=== PATIENT | female | born 1985 | race Caucasian/White ===

== ENCOUNTER 2016-09-14 09:19 | Emergency (ER) | payer MEDICAID ==
[~2016-09-14] VITALS: Ht 162.6 cm; Wt 109.5 kg
[2016-09-14 09:23] VITALS: Ht 162.6 cm; Wt 109.5 kg
[2016-09-14] MEDS ORDERED: IBUP-1542 PO (10:20)
--- NOTE | 2016-09-14 13:34 | ERD ---
ER Documentation Chief Complaint Date/Time DATE: 09/14/16 TIME: 13:33 Chief Complaint THROAT PAIN X 2 DAYS HPI Patient is a 31-year-old female with no medical problems who presents with a sore throat. She also has cough, congestion, and runny nose. She has had itchy eyes for the past 2 days and ear pain. She tried loratadine. She has left-sided flank pain. Upon review of old medical records this is the patient' s first visit to the emergency department. ROS All systems reviewed and are negative except as per history of present illness. Medications Home Meds Active Scripts Ibuprofen* (Motrin*) 600 Mg Tab, 600 MG PO Q6H Y for PAIN AND OR ELEVATED TEMP, #30 TAB Prov:FRANCISCO STEVENS MD 09/14/16 PMhx/Soc Medical and Surgical Hx: pt denies Medical Hx, pt denies Surgical Hx Hx Alcohol Use: No Hx Substance Use: No Hx Tobacco Use: No FmHx Family History: diabetes Physical Exam Vitals Vital Signs Date Time Temp Pulse Resp B/P Pulse Ox O2 Delivery O2 Flow Rate FiO2 09/14/16 09:23 98.7 90 18 121/68 100 Physical Exam Const: No acute distress Head: Atraumatic Eyes: Normal Conjunctiva ENT: Normal External Ears, Nose and Mouth. Neck: Full range of motion..~ No meningismus. Resp: Clear to auscultation bilaterally Cardio: Regular rate and rhythm, no murmurs Abd: Soft, non tender, non distended. Normal bowel sounds Skin: No petechiae or rashes Back: No midline or flank tenderness Ext: No cyanosis, or edema Neur: Awake and alert Psych: Normal Mood and Affect Procedures/MDM Patient is a 31-year-old female who presents with what appears to be an acute viral syndrome. I see no signs of serious bacterial infection at this time. She is otherwise well-appearing. The patient will be discharged home and can use ibuprofen as needed for pain or fever. She can return for any worsening symptoms. She should follow-up with a primary doctor within 24-48 hours for reevaluation. Her daughter is here with similar type symptoms and I do believe this is viral in nature. Departure Diagnosis: Primary Impression: URI (upper respiratory infection) URI type: unspecified viral URI Qualified Code: J06.9 - Viral upper respiratory tract infection Additional Impression: Sore throat Condition: Fair Patient Instructions: Uri, Viral, No Abx (Adult) Referrals: Your primary doctor Additional Instructions: Llame al doctor MAANA y ole sri PITO PARA DENTRO DE 1-2 PATTERSON.Dgale a la secretaria que nosotros le instruimos hacer esta pito.Avise o llame si meneses condicin se empeora antes de la pito. Regresa aqui si peor o no mejor. FRANCISCO STEVENS MD Sep 14, 2016 13:34
== END 2016-09-14 11:02 | disposition home or self-care (01) ==
LOC: FTE 09:19
DX: J06.9 Acute upper respiratory infection, unspecified (principal)
CPT/HCPCS: 99283

== ENCOUNTER 2016-09-23 11:12 | Emergency (ER) | payer MEDICAID ==
[~2016-09-23] VITALS: Ht 152.4 cm; Wt 108.2 kg
[~2016-09-23 11:12] MED LIST: IBUP-1542 PO
[2016-09-23 11:24] VITALS: Ht 152.4 cm; Wt 108.2 kg
[2016-09-23] MEDS ORDERED: KETOROLAC 30 MG INJ IM STA (12:20)
[2016-09-23] MEDS ORDERED: ONDANSETRON (ODT) 4 MG TAB ODT STA (12:20)
--- NOTE | 2016-09-23 12:55 | RADRPT ---
PROCEDURE: Chest x-ray CLINICAL INDICATION: Cough TECHNIQUE: Chest single view COMPARISON: None FINDINGS: The heart is normal in size. The pulmonary vessels are normal in caliber. The lungs are clear. Th e costophrenic angles are sharp. The visualized bony thorax is unremarkable. IMPRESSION: No acute cardiopulmonary disease. RPTAT: HH .Sidney Briseno MD, MD Date Time Electronically viewed and signed by .Sidney Briseno MD, MD on 09/23/2016 12:54 .W/
[2016-09-23] MEDS ORDERED: GUAI120S26 PO (13:32)
[2016-09-23] MEDS ORDERED: POLY10DR19 BOTH EYES (13:32)
[2016-09-23] MEDS ORDERED: ACET325T33 PO (13:32)
[2016-09-23] MEDS ORDERED: ONDA4TAB14 PO (13:32)
--- NOTE | 2016-09-23 13:41 | ERD ---
ER Documentation Chief Complaint Date/Time DATE: 09/23/16 TIME: 13:36 Chief Complaint Intermittent Fever, cough, body ache, chills, ST X 13 days HPI 31-year-old female with no significant past medical history presents to the ED complaining of dry cough that started 2 weeks ago. Reports that she has body aches chills and sore throat. States that she was seen here 2 weeks ago and was given a prescription for ibuprofen. States that her symptoms have not improved. Denies any sick contacts. Denies any abdominal pain, diarrhea, chest pain, shortness of breath, wheezing. ROS All systems reviewed and are negative except as per history of present illness. Medications Home Meds Active Scripts Ondansetron (Ondansetron Odt) 4 Mg Tab.rapdis, 4 MG PO Q6H Y for NAUSEA AND/OR VOMITING, #10 TAB Prov:KEVIN BAKER PA-C 09/23/16 Polymyxin B Sulfate-TMP* (Polymyxin B-TMP Eye Drops*) 10 Ml Drops, 1 DROP BOTH EYES QID for 7 Days, EA Prov:KEVIN BAKER PA-C 09/23/16 Adxyspdrnhn-V-Kybbdotupe Hb* (Guaifenesin* DM Syrup) 120 Ml Syrup, 10 ML PO Q4H Y for COUGH, #120 ML Prov:KEVIN BAKER PA-C 09/23/16 Acetaminophen* (Tylenol*) 325 Mg Tablet, 2 TAB PO Q8 Y for PAIN AND OR ELEVATED TEMP, #20 TAB Prov:KEVIN BAKER PA-C 09/23/16 Ibuprofen* (Motrin*) 600 Mg Tab, 600 MG PO Q6H Y for PAIN AND OR ELEVATED TEMP, #30 TAB Prov:FRANCISCO STEVENS MD 09/14/16 Allergies Allergies: Coded Allergies: No Known Allergy (Unverified , 09/23/16) PMhx/Soc Medical and Surgical Hx: pt denies Medical Hx, pt denies Surgical Hx Hx Alcohol Use: No Hx Substance Use: No Hx Tobacco Use: No Smoking Status: Never smoker Physical Exam Vitals Vital Signs Date Time Temp Pulse Resp B/P Pulse Ox O2 Delivery O2 Flow Rate FiO2 09/23/16 11:24 98.8 90 18 120/64 98 Physical Exam Const: Qek-icb-dkbwndgzs, well-nourished. In no acute distress. Head: Atraumatic, normocephalic Eyes: Conjunctiva with slight injection. No purulent discharge. PERRL. EOMI ENT: Normal external ear. Ear canal without erythema. Tympanic membrane pearly morris without effusion or bulging. Nasal canal clear with normal turbinates. Moist oropharynx without tonsillar exudates. Non-erythematous pharynx. Uvula midline. No drooling. No trismus. Neck: Full range of motion. No meningismus. No cervical lymphadenopathy. Resp: Clear to auscultation bilaterally. No wheezing, rhonchi, rales, or crackles. No accessory muscle use. No retractions. Cardio: Regular rate and rhythm. No murmurs, rubs or gallops. Abd: Soft, non tender, non distended. Normal bowel sounds. No palpable masses. No rebound tenderness. No guarding. Skin: No petechiae or rashes Back: No midline tenderness. No CVA tenderness. Ext: No cyanosis, or edema. Neur: Awake and alert. Psych: Normal Mood and Affect Results 24 hrs Current Medications Medications (Trade) Dose Ordered Sig/Rupali Route PRN Reason Start Time Stop Time Status Last Admin Dose Admin Ondansetron HCl (Zofran Odt) 4 mg ONCE STAT ODT 09/23/16 12:20 09/23/16 12:23 DC 09/23/16 12:30 Ketorolac Tromethamine (Toradol) 30 mg ONCE STAT IM 09/23/16 12:20 09/23/16 12:23 DC 09/23/16 12:31 Procedures/MDM This is a 31-year-old female with no significant past medical history presents to the ED complaining of flulike symptoms. Patient was seen here 2 weeks ago for similar symptoms and symptoms have not improved. Therefore a chest x-ray was ordered to further evaluate patient. Patient was treated here in the ED with ketorolac and Zofran with improvement of her symptoms. Negative urine . PROCEDURE: Chest x-ray CLINICAL INDICATION: Cough TECHNIQUE: Chest single view COMPARISON: None FINDINGS: The heart is normal in size. The pulmonary vessels are normal in caliber. The lungs are clear. The costophrenic angles are sharp. The visualized bony thorax is unremarkable. IMPRESSION: No acute cardiopulmonary disease. This patient presents to the ED with symptoms consistent with a flulike symptoms and conjunctivitis. Patient is afebrile and has normal vital signs. Patient's physical exam include lungs which were clear to auscultation and a normal pulse oximetry. There is a low suspicion for a croup, pneumonia, pneumothorax, cardiac tamponade, peritonsillar abscess, foreign body aspiration , mastoiditis, retropharyngeal abscess, epiglottitis, meningitis, sepsis or other emergent conditions. Low suspicion for retrobulbar hemorrhage, periorbital fracture/cellulitis, acute closure glaucoma, or other emergent conditions. Discharge medications: Zofran, Polytrim, guaifenesin DM, Tylenol Follow up with primary care physician in 1-2 days. Instructed patient to return to the ED sooner for any worsening symptoms. Patient's questions were answered. Patient understood and agreed with discharge plan. Patient discharged stable. Departure Diagnosis: Primary Impression: Viral syndrome Condition: Stable Patient Instructions: Viral Syndrome (Adult) Referrals: [facility] YOU HAVE RECEIVED A MEDICAL SCREENING EXAM AND THE RESULTS INDICATE THAT YOU DO NOT HAVE A CONDITION THAT REQUIRES URGENT TREATMENT IN THE EMERGENCY DEPARTMENT. FURTHER EVALUATION AND TREATMENT OF YOUR CONDITION CAN WAIT UNTIL YOU ARE SEEN IN YOUR DOCTORS OFFICE WITHIN THE NEXT 1-2 DAYS. IT IS YOUR RESPONSIBILITY TO MAKE AN APPOINTMENT FOR FOLOW-UP CARE. IF YOU HAVE A PRIMARY DOCTOR --you should call your primary doctor and schedule an appointment IF YOU DO NOT HAVE A PRIMARY DOCTOR YOU CAN CALL OUR PHYSICIAN REFERRAL HOTLINE AT IF YOU CAN NOT AFFORD TO SEE A PHYSICIAN YOU CAN CHOSE FROM THE FOLLOWING [facility] [address] [facility] [address] [facility]. [facility] [address] [facility] [facility] [address] [facility] [address] [facility]. [facility]. [address] [facility]. [facility] YOU HAVE RECEIVED A MEDICAL SCREENING EXAM AND THE RESULTS INDICATE THAT YOU DO NOT HAVE A CONDITION THAT REQUIRES URGENT TREATMENT IN THE EMERGENCY DEPARTMENT. FURTHER EVALUATION AND TREATMENT OF YOUR CONDITION CAN WAIT UNTIL YOU ARE SEEN IN YOUR DOCTORS OFFICE WITHIN THE NEXT 1-2 DAYS. IT IS YOUR RESPONSIBILITY TO MAKE AN APPOINTMENT FOR FOLOW-UP CARE. IF YOU HAVE A PRIMARY DOCTOR --you should call your primary doctor and schedule and appointment IF YOU DO NOT HAVE A PRIMARY DOCTOR YOU CAN CALL OUR PHYSICIAN REFERRAL HOTLINE AT . IF YOU CAN NOT AFFORD TO SEE A PHYSICIAN YOU CAN CHOSE FROM THE FOLLOWING [facility] INSTITUTIONS: [facility] [address] [place] [address] [facility] [address] [place] [address] [facility] [address] [place] [address] [facility] URGENT CARE/SPECIALTIES Additional Instructions: Llame al doctor MAANA y ole sri PITO PARA DENTRO DE 1-2 PATTERSON.Dgale a la secretaria que nosotros le instruimos hacer esta pito.Avise o llame si meneses condicin se empeora antes de la pito. Regresa aqui si peor o no mejor. KEVIN BAKER PA-C Sep 23, 2016 13:41
== END 2016-09-23 13:37 | disposition home or self-care (01) ==
LOC: FTE 11:12
DX: B34.9 Viral infection, unspecified (principal)
CPT/HCPCS: 71010; 96372; J1885; Z7502; Z7610

== ENCOUNTER 2016-12-11 20:44 | Emergency (ER) | payer MEDICAID ==
[~2016-12-11] VITALS: Ht 152.4 cm; Wt 110.5 kg
[~2016-12-11 20:44] MED LIST changes: +ACET325T33 PO; +GUAI120S26 PO; +ONDA4TAB14 PO; +POLY10DR19 BOTH EYES
[2016-12-11 20:48] VITALS: Ht 152.4 cm; Wt 110.5 kg
--- NOTE | 2016-12-11 23:05 | ERD ---
ER Documentation Chief Complaint Date/Time DATE: 12/11/16 TIME: 23:01 Chief Complaint epigastric pain since 3 hours ago HPI 31-year-old female presents to emergency department for complaint of epigastric pain started 3 hours prior to arrival. Patient discussed the pain as sharp pain , 6/10 scale, not better or worse with anything. Patient denies any nausea vomiting. Patient denies any fever or chills. Patient denies any hematuria or dysuria. She denies any diarrhea or constipation. Patient did not take any medications to help with symptoms. ROS All systems reviewed and are negative except as per history of present illness. Medications Home Meds Active Scripts Ondansetron (Ondansetron Odt) 4 Mg Tab.rapdis, 4 MG PO Q6H Y for NAUSEA AND/OR VOMITING, #10 TAB Prov:KEVIN BAKER PA-C 09/23/16 Polymyxin B Sulfate-TMP* (Polymyxin B-TMP Eye Drops*) 10 Ml Drops, 1 DROP BOTH EYES QID for 7 Days, EA Prov:KVEIN BAKER PA-C 09/23/16 Kleocltxrcn-N-Oxnolwkvrf Hb* (Guaifenesin* DM Syrup) 120 Ml Syrup, 10 ML PO Q4H Y for COUGH, #120 ML Prov:KEVIN BAKER PA-C 09/23/16 Acetaminophen* (Tylenol*) 325 Mg Tablet, 2 TAB PO Q8 Y for PAIN AND OR ELEVATED TEMP, #20 TAB Prov:KEVIN BAKER PA-C 09/23/16 Ibuprofen* (Motrin*) 600 Mg Tab, 600 MG PO Q6H Y for PAIN AND OR ELEVATED TEMP, #30 TAB Prov:FRANCISCO STEVENS MD 09/14/16 Allergies Allergies: Coded Allergies: No Known Allergy (Unverified , 09/23/16) PMhx/Soc Medical and Surgical Hx: pt denies Medical Hx History of Surgery: Yes ( x2) Anesthesia Reaction: No Hx Neurological Disorder: No Hx Respiratory Disorders: No Hx Cardiac Disorders: No Hx Psychiatric Problems: No Hx Miscellaneous Medical Probl: No Hx Alcohol Use: No Hx Substance Use: No Hx Tobacco Use: No Smoking Status: Never smoker FmHx Family History: No coronary disease, No diabetes, No other Physical Exam Vitals Vital Signs Date Time Temp Pulse Resp B/P Pulse Ox O2 Delivery O2 Flow Rate FiO2 12/11/16 20:48 98.6 101 20 137/77 99 Physical Exam GENERAL: The patient is well developed and appropriate for usual state of health, in no apparent distress. CHEST: Clear to auscultation bilaterally. There are no rales, wheezes or rhonchi. HEART: Regular rate and rhythm. No murmurs, clicks, rubs or gallops. No S3 or S4. ABDOMEN: Soft, nontender and nondistended. Good bowel sounds. No rebound or guarding. No gross peritonitis. No gross organomegaly or masses. No Luevano sign or McBurney point tenderness. BACK: No midline or flank tenderness. EXTREMITIES: Equal pulses bilaterally. There is no peripheral clubbing, cyanosis or edema. No focal swelling or erythema. Full range of motion. Grossly neurovascularly intact. NEURO: Alert and oriented. Cranial nerves 2-12 intact. Motor strength in all 4 extremities with 5/5 strength. Sensation grossly intact. Normal speech and gait. SKIN: There is no apparent rash or petechia. The skin is warm and dry. HEMATOLOGIC AND LYMPHATIC: There is no evidence of excessive bruising or lymphedema. No gross cervical, axillary, or inguinal lymphadenopathy. Result Diagram: 12/11/169 12/11/169 Results 24 hrs Laboratory Tests Test 12/11/16 23:19 White Blood Count 9.410^3/ul Red Blood Count 4.4810^6/ul Hemoglobin 13.6g/dl Hematocrit 40.3% Mean Corpuscular Volume 90.0fl Mean Corpuscular Hemoglobin 30.4pg Mean Corpuscular Hemoglobin Concent 33.7g/dl Red Cell Distribution Width 12.8% Platelet Count 49132^3/UL Mean Platelet Volume 11.3fl Neutrophils % 48.1% Lymphocytes % 39.7% Monocytes % 7.8% Eosinophils % 3.8% Basophils % 0.5% Nucleated Red Blood Cells % 0.0/100WBC Neutrophils # 4.510^3/ul Lymphocytes # 3.810^3/ul Monocytes # 0.710^3/ul Eosinophils # 0.410^3/ul Basophils # 0.110^3/ul Nucleated Red Blood Cells # 0.010^3/ul Urine Color LT. YELLOW Urine Clarity 1.025 Urine pH N Urine Specific [place] 6.0 Urine Ketones NEGATIVE Urine Nitrite NEGATIVE Urine Bilirubin NEGATIVE Urine Urobilinogen 0.2 E.U./dL Urine Leukocyte Esterase NEGATIVE Urine Microscopic RBC 0-2/HPF Urine Microscopic WBC 0-2/HPF Urine Squamous Epithelial Cells FEW Urine Bacteria FEW Urine Hemoglobin TRACE Urine Glucose NEGATIVE% Urine Total Protein NEGATIVE Sodium Level 137mmol/L Potassium Level 3.9mmol/L Chloride Level 104mmol/L Carbon Dioxide Level 25mmol/L Anion Gap 12 Blood Urea Nitrogen 20mg/dl Creatinine 0.75mg/dl Glucose Level 96mg/dl Calcium Level 9.5mg/dl Total Bilirubin 0.0mg/dl Direct Bilirubin 0.00mg/dl Indirect Bilirubin 0.0mg/dl Aspartate Amino Transf (AST/SGOT) 20IU/L Alanine Aminotransferase (ALT/SGPT) 34IU/L Alkaline Phosphatase 82IU/L Total Protein 7.6g/dl Albumin 4.1g/dl Globulin 3.50g/dl Albumin/Globulin Ratio 1.17 Lipase 164U/L PROCEDURE: Right upper quadrant abdominal ultrasound. CLINICAL INDICATION: Abdominal pain TECHNIQUE: [place] scale and color doppler ultrasound images of the right upper quadrant. COMPARISON: None FINDINGS: Pancreas: Visualized portions appear of normal echogenicity, no focal lesions. Liver: Morphology: Normal in size and contour. Echogenicity: Increased echogenicity of the liver parenchyma suggestive of hepatic steatosis. Focal lesions: None. Main portal vein: Patent with hepatopetal flow. Biliary System: Normal appearing gallbladder wall. No gallstones seen. No intrahepatic biliary dilatation. Common bile duct measures 2.2 mm in maximal dimension. Kidneys: Right 10.6 cm in length. Right renal cortical thickness is preserved. Normal echogenicity. No hydronephrosis. 6 mm probable calculus of the right kidney. No focal lesions. No free fluid identified. IMPRESSION: Normal gallbladder without gallstones. 6 mm probable nonobstructive calculus of the right kidney without hydronephrosis. Increased echogenicity of the liver parenchyma suggestive of hepatic steatosis. RPTAT: AADD .Deshawn Briggs MD, MD Date Time Electronically viewed and signed by .Deshawn Briggs MD, on 12/11/2016 23:19 .B/ CC: STACIE CONNER NP Procedures/MDM Medical Decision Making: Patient's symptoms of epigastric a nonspecific at this time, most likely is from gastritis. No liver function test elevation, lipase is normal, no symptoms of pancreatitis. No symptoms of bowel perforation or bowel obstruction. There is low suspicion for abdominal emergencies at this time. Patients abdominal exam is normal at this time. Patients radiology exam does not show any abdominal emergencies at this time. There is low suspicion for appendicitis, cholecystitis, abdominal aortic aneurysms or peritonitis at this time. There is low suspicion for sepsis. Patient appears well and is hemodynamically stable. There is an incidental finding of a renal stone but is nonobstructive at this time. Disposition: Home. Condition: Stable Prescription Zofran, [place], Mylanta, omeprazole Instructions: Patient is advised to take medications as prescribed. Patient is advised to rest, increase fluid intake and do avoid spicy food, do brat diet for next 1-2 days and progress as tolerated. Patient is advised that if symptoms are worse, severe abdominal pain, uncontrolled vomiting, high fever, severe flank pain, worst signs and symptoms, to return to the emergency department immediately. Otherwise, patient can follow up with primary care doctor in 5-7 days. Departure Diagnosis: Primary Impression: Epigastric pain Additional Impression: Renal stone Condition: Stable Patient Instructions: Epigastric Pain (Uncertain Cause), Kidney Stone, Undescended (No Symptoms) Additional Instructions: Patient is advised to take medications as prescribed. Patient is advised to rest , increase fluid intake and do avoid spicy food, do brat diet for next 1-2 days and progress as tolerated. Patient is advised that if symptoms are worse, severe abdominal pain, uncontrolled vomiting, high fever, severe flank pain, worst signs and symptoms, to return to the emergency department immediately. Otherwise, patient can follow up with primary care doctor in 5-7 days. STACIE CONNER NP December 11, 2016 23:05
--- NOTE | 2016-12-11 23:20 | RADRPT ---
PROCEDURE: Right upper quadrant abdominal ultrasound. CLINICAL INDICATION: Abdominal pain TECHNIQUE: [place] scale and color doppler ultrasound images of the right upper quadrant. COMPARISON: None FINDINGS: Pancreas: Visualized portions appear of normal echogenicity, no focal lesions. Liver: Morphology: Normal in size and contour. Echogenicity: Increased echogenicity of the liver parenchyma suggestive of hepatic steatosis. Focal lesions: None. Main portal vein: Patent with hepatopetal flow. Biliary System: Normal appearing gallbladder wall. No gallstones seen. No intrahepatic biliary dilatation. Common bile duct measures 2.2 mm in maximal dimension. Kidneys: Right 10.6 cm in length. Right renal cortical thickness is preserved. Normal echogenicity. No hydronephrosis. 6 mm probable calculus of the right kidney. No focal lesions. No free fluid identified. IMPRESSION: Normal gallbladder without gallstones. 6 mm probable nonobstructive calculus of the right kidney without hydronephrosis. Increased echogenicity of the liver parenchyma suggestive of hepatic steatosis. RPTAT: AADD .Deshawn Briggs MD, Date Time Electronically viewed and signed by .Deshawn Briggs MD, on 12/11/2016 23:19 .B/
[2016-12-11 23:40] LABS: ADD SCAN DIFF NO
[2016-12-11 23:42] LABS: BASOPHIL # 0.1 10^3/ul (0.0-0.1); BASOPHILS % 0.5 % (0.0-2.0); EOSINOPHILS # 0.4 10^3/ul (0.0-0.5); EOSINOPHILS % 3.8 % (0.0-7.0); HEMATOCRIT 40.3 % (37.0-47.0); HEMOGLOBIN 13.6 g/dl (12.0-16.0); LYMPHOCYTES # 3.8 10^3/ul (0.8-2.9); LYMPHOCYTES % 39.7 % (15.0-51.0); MEAN CORPUSCULAR HEMOGLOBIN 30.4 pg (29.0-33.0); MEAN CORPUSCULAR HGB CONC 33.7 g/dl (32.0-37.0); MEAN PLATELET VOLUME 11.3 fl (7.4-10.4); MONOCYTE # 0.7 10^3/ul (0.3-0.9); MONOCYTES % 7.8 % (0.0-11.0); NEUTROPHIL # 4.5 10^3/ul (1.6-7.5); NEUTROPHILS % 48.1 % (39.0-77.0); PLATELET COUNT 222 10^3/UL (140-415); RED BLOOD COUNT 4.48 10^6/ul (4.20-5.40); RED CELL DISTRIBUTION WIDTH 12.8 % (11.5-14.5); WHITE BLOOD COUNT 9.4 10^3/ul (4.8-10.8)
[2016-12-12 00:05] LABS: ALBUMIN 4.1 g/dl (3.3-4.9); ALBUMIN/GLOBULIN RATIO 1.17; CALCIUM 9.5 mg/dl (8.4-10.2); CREATININE 0.75 mg/dl (0.44-1.00); POTASSIUM 3.9 mmol/L (3.5-5.1); TOTAL PROTEIN 7.6 g/dl (6.1-8.1)
[2016-12-12 00:17] LABS: URINE BILIRUBIN (Dip) NEGATIVE (NEGATIVE); URINE COLOR LT. YELLOW (YELLOW); URINE GLUCOSE (Dip) NEGATIVE (NEGATIVE); URINE KETONES (Dip) NEGATIVE (NEGATIVE); URINE TOTAL PROTEIN (Dip) NEGATIVE (NEGATIVE)
[2016-12-12 00:18] LABS: ADD UMIC YES; URINE BLOOD (Dip) TRACE (NEGATIVE); URINE LEUKOCYTE ESTERASE (Dip) NEGATIVE (NEGATIVE); URINE NITRITE (Dip) NEGATIVE (NEGATIVE); URINE UROBILINOGEN (Dip) 0.2 E.U./dL (0.1-1.0)
[2016-12-12 00:20] LABS: BACTERIA,URINE FEW; SQUAMOUS EPITHELIAL CELL,UR FEW; URINE RBCS 0-2 /HPF (0)
[2016-12-12] MEDS ORDERED: MAG-19 PO (00:27)
[2016-12-12] MEDS ORDERED: OMEP20CA16 PO (00:27)
[2016-12-12] MEDS ORDERED: ONDA4TAB14 PO (00:27)
[2016-12-12] MEDS ORDERED: HYDR-906 PO (00:27)
[2016-12-12] MEDS ORDERED: LIDOCAINE/MYLANTA 40 ML BTL PO ONE (00:30)
[2016-12-12] MEDS ORDERED: HYDROCODONE/APAP (5/325) TAB PO ONE (00:30)
[2016-12-12 01:02] VITALS: BP 128/67; PULSE 92; RESP 18; TEMP 98.2
[2016-12-12] MEDS ORDERED: NAPH15DR22 BOTH EYES (01:08)
== END 2016-12-12 01:20 | disposition home or self-care (01) ==
LOC: FTE 20:44
DX: R10.13 Epigastric pain (principal); N20.0 Calculus of kidney
CPT/HCPCS: 76705; 80053; 81001; 83690; 85025; Z7610; 81003

== ENCOUNTER 2017-12-02 16:56 | Emergency (ER) | END 2017-12-02 22:05 | disposition home or self-care (01) ==

== ENCOUNTER 2017-12-25 19:36 | Emergency (ER) | END 2017-12-25 21:55 | disposition home or self-care (01) ==

== ENCOUNTER 2018-06-14 15:25 | Emergency (ER) | END 2018-06-14 18:40 | disposition home or self-care (01) ==

== ENCOUNTER 2018-08-21 07:38 | Emergency (ER) | payer MEDICAID ==
[~2018-08-21] VITALS: Ht 162.6 cm; Wt 112.9 kg
[~2018-08-21 07:38] MED LIST changes: +ALBU8.5H8 INH; +AZIT250T PO; +HYDR-4011 PO; +IBUP-1561 PO; +MAG-19 PO; +MED4DP PO; +NAPH15DR69 BOTH EYES; +OMEP20CA16 PO; +RANI150T35 PO
[2018-08-21 07:39] VITALS: Ht 162.6 cm; Wt 112.9 kg
[2018-08-21] MEDS ORDERED: KETOROLAC 30 MG INJ IV STA (08:04)
[2018-08-21] MEDS ORDERED: SOD CHLORIDE 0.9% 1,000 ML IV STA (08:04)
[2018-08-21] MEDS ORDERED: ONDANSETRON 4 MG INJ IV STA (08:04)
[2018-08-21] MEDS ORDERED: ACETAMINOPHEN 500 MG TAB PO STA (08:15)
--- NOTE | 2018-08-21 09:48 | ERD ---
ER Documentation Chief Complaint Chief Complaint HEADACHE , DIZZINESS , LT SIDE ABD PAIN WITH NAUSEA X 4 DAYS HPI 33-year-old female presenting with headache and dizziness. She states she has some left leg sided lower abdominal pain with nausea times 4 days. She is not had vomiting but does feel nauseous. Has not taken medications. She is never had this before. Denies dysuria. Denies hematuria. Medical history is kidney stones. NKDA. Surgical history . Social history denies. LNMP July 11 ROS All systems reviewed and are negative except as per history of present illness. Medications Home Meds Active Scripts Ibuprofen* (Motrin*) 400 Mg Tab, 400 MG PO Q8, #15 TAB Prov:BLANCHE AMEZCUA MD 06/14/18 Methylprednisolone* (Medrol* DOSE PACK) 4 Mg/Dose-Pack Tab.ds.pk, 4 MG PO . DIRECTED for 6 Days, PACKET Prov:BONILLA GUILLEN 12/25/17 Albuterol Sulfate* (Proair HFA*) 8.5 Gm Hfa.aer.ad, 2 PUFF INH Q4, #1 INHALER Prov:BONILLA GUILLEN 12/25/17 Azithromycin* (Zithromax*) 250 Mg Tablet, 250 MG PO .ZPACK DIRECTED, #6 TAB TAKE 500 MG (2 TABS) THE FIRST DAY THEN 250 MG (1 TAB) DAYS 2-5 Prov:BONILLA GUILLEN 12/25/17 Hydrocodone/Acetaminophen ([place] 5-325 Tablet) 1 Each Tablet, 1 TAB PO Q6H PRN for PAIN, #20 TAB Prov:BLANCHE AMEZCUA MD 12/02/17 Ranitidine Hcl* (Zantac*) 150 Mg Tablet, 150 MG PO BID PRN for EPIGASTRIC PAIN, #30 TAB Prov:BLANCHE AMEZCUA MD 12/02/17 Naphazoline-Pheniramine* (Visine-A*) 15 Ml Drops, 2 DROP BOTH EYES Q4H PRN for RED EYES, #1 BOT Prov:STACIE CONNER NP 12/12/16 Omeprazole* (Omeprazole*) 20 Mg Capsule.dr, 20 MG PO DAILY, #30 Prov:STACIE CONNER NP 12/12/16 Hydrocodone/Acetaminophen ([place] 5-325 Tablet) 1 Each Tablet, 1 TAB PO Q6H PRN for SEVERE PAIN LEVEL 7-10, #20 TAB Prov:STACIE CONNER NP 12/12/16 Ondansetron (Ondansetron Odt) 4 Mg Tab.rapdis, 4 MG PO Q8 PRN for NAUSEA AND/OR VOMITING, #30 TAB Prov:STACIE CONNER NP 12/12/16 Magaldrate/Simethicone* (Mylanta*) 355 Ml Susp, 30 ML PO QID PRN for GASTROINTESTINAL UPSET, #1 BOTTLE Prov:STACIE CONNER NP 12/12/16 Ondansetron (Ondansetron Odt) 4 Mg Tab.rapdis, 4 MG PO Q6H PRN for NAUSEA AND/OR VOMITING, #10 TAB Prov:KEVIN BAKER PA-C 09/23/16 Polymyxin B Sulfate-TMP* (Polymyxin B-TMP Eye Drops*) 10 Ml Drops, 1 DROP BOTH EYES QID for 7 Days, EA Prov:KEVIN BAKER PA-C 09/23/16 Gcsrcecxfyr-N-Fkculiigbm Hb* (Guaifenesin* DM Syrup) 120 Ml Syrup, 10 ML PO Q4H PRN for COUGH, #120 ML Prov:KEVIN BAKER PA-C 09/23/16 Acetaminophen* (Tylenol*) 325 Mg Tablet, 2 TAB PO Q8 PRN for PAIN AND OR ELEVAT ED TEMP, #20 TAB Prov:KEVIN BAKER PA-C 09/23/16 Ibuprofen* (Motrin*) 600 Mg Tab, 600 MG PO Q6H PRN for PAIN AND OR ELEVATED TEMP, #30 TAB Prov:FRANCISCO STEVENS MD 09/14/16 Allergies Allergies: Coded Allergies: No Known Allergy (Unverified , 09/23/16) PMhx/Soc History of Surgery: Yes ( x2) Anesthesia Reaction: No Hx Neurological Disorder: No Hx Respiratory Disorders: Yes (asthma) Hx Cardiac Disorders: No Hx Psychiatric Problems: No Hx Miscellaneous Medical Probl: Yes (kidney stones) Hx Alcohol Use: No Hx Substance Use: No Hx Tobacco Use: No Smoking Status: Never smoker FmHx Family History: No diabetes, No coronary disease, No other Physical Exam Vitals Vital Signs Date Temp Pulse Resp B/P (MAP) Pulse Ox O2 O2 Flow FiO2 Time Delivery Rate 08/21/18 99.2 86 18 118/71 99 07:39 (87) Physical Exam GENERAL: The patient is well-appearing, well-nourished, in no acute distress HEENT: Atraumatic. Conjunctivae are pink. Pupils equal, round, and reactive to light. There is no scleral icterus. Tympanic membranes clear bilaterally. Oropharynx clear. No nystagmus or photophobia. CHEST: Clear to auscultation bilaterally. There are no rales, wheezes or rhonchi. HEART: Regular rate and rhythm. No murmurs, clicks, rubs or gallops. ABDOMEN: Mild tenderness to palpation in the left lower quadrant with no rebound tenderness. No organomegaly. No distention. Normoactive bowel sounds. Result Diagram: 08/21/18 0808 08/21/18 0808 Results 24 hrs Laboratory Tests Test 08/21/18 08:08 08/21/18 08:13 08/21/18 08:25 White Blood Count 7.7 10^3/ul Red Blood Count 4.29 10^6/ul Hemoglobin 12.9 g/dl Hematocrit 39.1 % Mean Corpuscular Volume 91.1 fl Mean Corpuscular Hemoglobin 30.1 pg Mean Corpuscular 33.0 g/dl Hemoglobin Concent Red Cell Distribution Width 13.5 % Platelet Count 221 10^3/UL Mean Platelet Volume 11.3 fl Immature Granulocytes % 0.300 % Neutrophils % 61.9 % Lymphocytes % 29.4 % Monocytes % 5.9 % Eosinophils % 1.8 % Basophils % 0.7 % Nucleated Red Blood Cells % 0.0 /100WBC Immature Granulocytes # 0.020 10^3/ul Neutrophils # 4.8 10^3/ul Lymphocytes # 2.3 10^3/ul Monocytes # 0.5 10^3/ul Eosinophils # 0.1 10^3/ul Basophils # 0.1 10^3/ul Nucleated Red Blood Cells # 0.0 10^3/ul Urine Color COLORLESS Urine Clarity CLEAR Urine pH 6.0 Urine Specific [place] 1.005 Urine Ketones NEGATIVE mg/dL Urine Nitrite NEGATIVE mg/dL Urine Bilirubin NEGATIVE mg/dL Urine Urobilinogen NEGATIVE mg/dL Urine Leukocyte Esterase NEGATIVE Altagracia/ul Urine Hemoglobin NEGATIVE mg/dL Urine Glucose NEGATIVE mg/dL Urine Total Protein NEGATIVE mg/dl Sodium Level 141 mmol/L Potassium Level 4.8 mmol/L Chloride Level 104 mmol/L Carbon Dioxide Level 28 mmol/L Anion Gap 9 Blood Urea Nitrogen 15 mg/dl Creatinine 0.60 mg/dl Est Glomerular Filtrat > 60 mL/min Rate mL/min Glucose Level 102 mg/dl Calcium Level 9.5 mg/dl Total Bilirubin 0.1 mg/dl Direct Bilirubin 0.00 mg/dl Indirect Bilirubin 0.1 mg/dl Aspartate Amino 22 IU/L Transf (AST/SGOT) Alanine 20 IU/L Aminotransferase (ALT/SGPT) Alkaline Phosphatase 70 IU/L Total Protein 7.3 g/dl Albumin 4.1 g/dl Globulin 3.20 g/dl Albumin/Globulin Ratio 1.28 Lipase 116 U/L POC Beta HCG, Qualitative POSITIVE Beta HCG, Quantitative 4451.2 mIU/ml Current Medications Medications Dose Sig/Rupali Start Time Status Last (Trade) Ordered Route PRN Stop Time Admin Dose Reason Admin Sodium 1,000 ml @ Q1H STAT 08/21/18 DC 08/21/18 Chloride 1,000 mls/hr IV 08:04 08:40 08/21/18 09:03 Ondansetron 4 mg ONCE STAT 08/21/18 DC 08/21/18 HCl (Zofran IV 08:04 08:40 Inj) 08/21/18 08:05 Ketorolac 30 mg ONCE STAT 08/21/18 DC Tromethamine IV 08:04 (Toradol) 08/21/18 08:05 1,000 mg ONCE STAT 08/21/18 DC 08/21/18 Acetaminophen PO 08:15 08:33 (Tylenol 08/21/18 08:16 Tab) Procedures/MDM DIAGNOSTIC IMAGING REPORT Patient: SUDHEER BOYER : 1985 Age: 33 Sex: F MR #: [id number] DOS: 08/21/1815 Ordering MD: SUGAR KEARNEY PA-C Location: [facility] Room/Bed: PROCEDURE: ULTRASOUND OBSTETRICAL CLINICAL INDICATION: 33-year-old female with vaginal bleeding. TECHNIQUE: Multiple sonographic images of the pelvis were obtained. The images were reviewed on a PACS workstation. COMPARISON: None. FINDINGS: The uterus is visualized and measures 12.6 x 5.9 x 7.7 cm. There is a single intrauterine gestation. The mean sac diameter is 1.06 cm. This yields an estimated gestational age of 5 weeks and 5 days. The estimated date of delivery is April 18, 2019. There is no evidence for a yolk sac or pole. There is no evidence for free fluid. The right ovary has a normal echotexture and measures 4.2 x 2.5 x 2.7 cm. There is a right ovarian corpus luteum cyst measuring approximately 2.2 x 2.0 cm. The left ovary has a normal echotexture and measures 4.2 x 2.3 x 2.6 cm. There is normal flow to the ovaries bilaterally. No adnexal masses are noted. IMPRESSION: 1. Single early intrauterine gestation of approximately 5 weeks 5 days without evidence for a pole. Clinical correlation and follow-up ultrasound is indicated. 2. Right ovarian corpus luteum cyst. ER Course: 1 L normal saline given ED. Zofran given ED. Tylenol given ED. Patient had positive test MDM: 33-year-old female presenting with a new findings consistent with . I have low suspicion for acute abdominal emergency. I have considered ectopic but have low suspicion given there is an IUP seen on ultrasound. I have low suspicion for other acute abdominal emergencies. I do not feel that imaging is indicated. Patient is discharged with supportive medications and told to follow-up with primary care within 1-2 days for close evaluation. Patient is told if symptoms change or worsen to return immediately to the ER. All questions answered at discharge Departure Diagnosis: Primary Impression: Condition: Stable Patient Instructions: , New Dx Referrals: COMMUNITY CLINICS YOU HAVE RECEIVED A MEDICAL SCREENING EXAM AND THE RESULTS INDICATE THAT YOU DO NOT HAVE A CONDITION THAT REQUIRES URGENT TREATMENT IN THE EMERGENCY DEPARTMENT. FURTHER EVALUATION AND TREATMENT OF YOUR CONDITION CAN WAIT UNTIL YOU ARE SEEN IN YOUR DOCTORS OFFICE WITHIN THE NEXT 1-2 DAYS. IT IS YOUR RESPONSIBILITY TO MAKE AN APPOINTMENT FOR FOLOW-UP CARE. IF YOU HAVE A PRIMARY DOCTOR --you should call your primary doctor and schedule an appointment IF YOU DO NOT HAVE A PRIMARY DOCTOR YOU CAN CALL OUR PHYSICIAN REFERRAL HOTLINE AT IF YOU CAN NOT AFFORD TO SEE A PHYSICIAN YOU CAN CHOSE FROM THE FOLLOWING [facility] [address] [facility] [address] [facility] [address] [facility] [address] [facility] [facility] [address] [facility]. [facility] [address] Additional Instructions: FOLLOW UP WITH YOUR PRIMARY CARE PHYSICIAN TOMORROW.Return to this facility if you are not improving as expected. HILDA KEARNEY PA-C Aug 21, 2018 09:48
[2018-08-21 09:54] VITALS: BP 122/64; PULSE 68; RESP 18
== END 2018-08-21 09:55 | disposition home or self-care (01) ==
LOC: FTE 07:38
DX: Z33.1 Pregnant state, incidental (principal); J45.909 Unspecified asthma, uncomplicated
CPT/HCPCS: 36415; 76801; 80053; 81003; 81025; 83690; 84702; 85025; 86900; 86901; 96361; 96374; J2405; J7030; Z7502; Z7610

== ENCOUNTER 2018-11-04 08:58 | Emergency (ER) | payer MEDICAID ==
[~2018-11-04] VITALS: Ht 157.5 cm; Wt 113.7 kg
[2018-11-04 09:33] VITALS: Ht 157.5 cm; Wt 113.7 kg
[2018-11-04] MEDS ORDERED: ACETAMINOPHEN 325 MG TAB PO STA (10:19)
[2018-11-04] MEDS ORDERED: ACET500C5 PO (12:36)
[2018-11-04] MEDS ORDERED: CETI10CA PO (12:36)
[2018-11-04] MEDS ORDERED: SODI30SP2 NS (12:36)
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
[2018-11-04 12:54] VITALS: BP 128/70; PULSE 88; RESP 16
== END 2018-11-04 12:56 | disposition home or self-care (01) ==
LOC: FTE 08:58
DX: O26.892 Other specified pregnancy related conditions, second trimester (principal); J30.2 Other seasonal allergic rhinitis; R10.32 Left lower quadrant pain; O99.512 Diseases of the respiratory system complicating pregnancy, second trimester; J45.909 Unspecified asthma, uncomplicated; Z3A.16 16 weeks gestation of pregnancy
CPT/HCPCS: 36415; 76705; 76805; 80053; 81003; 83690; 84702; 85025; 86900; 86901; Z7502; Z7610